=== PATIENT | female | born 1990 | race Caucasian/White ===

== ENCOUNTER 2016-07-01 17:35 | Emergency (ER) | payer MEDICAID | END 2016-07-01 19:55 | disposition home or self-care (01) | DX: R21 Rash and other nonspecific skin eruption (principal); R74.0 Nonspecific elevation of levels of transaminase and lactic acid dehydrogenase [LDH]; R74.8 Abnormal levels of other serum enzymes ==

== ENCOUNTER 2021-05-09 19:21 | Emergency (ER) | payer MEDICAID ==
--- NOTE | 2021-05-09 20:11 | ED Physician Documentation ---
History of Present Illness - Stated complaint Stated Complaint: BILAT HAND SWELL/PAIN/FEVER ON HANDS - Chief complaint Chief Complaint: Ext Problem - History obtained from History obtained from: Patient - Additonal information Additional information: Previously healthy 30-year-old woman. She is quite thin but denies recent weight changes. She presents with bilateral worsening hand redness more burning than painful that started with a lesion on the left index finger that subsequently popped and had some purulent drainage. There is no associated fevers or chills. She denies IV drug use. No other rashes. No history of similar prior issues. Review of Systems Constitutional: reports: Reviewed and negative Eyes: reports: Reviewed and negative Ears: reports: Reviewed and negative Cardiac: reports: Reviewed and negative Respiratory: reports: Reviewed and negative PD PAST MEDICAL HISTORY - Past Medical History Past Medical History: No - Past Surgical History Past Surgical History: No - Present Medications Home Medications: Ambulatory Orders Medication Instructions Recorded Confirmed Sulfamethox/Trimeth 800/160 1 each PO BID #14 tablet 05/09/21 [Bactrim Ds 800/160] - Allergies Allergies/Adverse Reactions: Allergies Allergy/AdvReac Type Severity Reaction Status Date / Time No Known Drug Allergies Allergy Verified 05/09/21 19:31 - Social History Does the pt smoke?: No Smoking Status: Never smoker Does the pt drink ETOH?: No Does the pt have substance abuse?: No - Immunizations Immunizations are current?: Yes PD ED PE NORMAL - Vitals Vital signs reviewed: Yes - General General: Alert and oriented X 3, No acute distress - Extremities Extremities: Other (see mdm, text box too small) - Neuro Neuro: Alert and oriented X 3, Normal speech Results - Vitals Vitals: Vital Signs - 24 hr 05/09/21 05/09/21 19:24 21:38 Temperature 36.4 C L Heart Rate 59 L 61 Respiratory 16 18 Rate Blood Pressure 114/61 108/65 O2 Saturation 100 100 Oxygen O2 Source Room air - Labs Labs: Laboratory Tests 05/09/21 05/09/21 05/09/21 20:19 20:19 20:19 WBC 1.7 L* RBC 3.63 L Hgb 11.7 L Hct 34.9 L MCV 96.1 MCH 32.2 H MCHC 33.5 RDW 13.2 Plt Count 136 MPV 10.1 Neut # (Auto) Not Reportable Lymph # (Auto) Not Reportable [place] # (Auto) Not Reportable Eos # (Auto) Not Reportable Baso # (Auto) Not Reportable Absolute Nucleated RBC Not Reportable Total Counted 50 Band Neuts % (Manual) 14 H Reactive Lymphs % (Man) 10 Abnorm Lymph % (Manual) 8 Nucleated RBC % Not Reportable Neutrophils # (Manual) 0.4 L* Lymphocytes # (Manual) 1.2 L Monocytes # (Manual) 0.1 Eosinophils # (Manual) 0.0 Basophils # (Manual) 0.0 Differential Comment MANUAL DIFFERENTIAL Platelet Estimate DECREASED (<130,000) Platelet Morphology NORMAL APPEARANCE RBC Morph Micro Appear NORMAL APPEARANCE ESR 17 Sodium 134 L Potassium 3.7 Chloride 103 Carbon Dioxide 23 Anion Gap 8.0 BUN 21 H Creatinine 0.5 Estimated GFR (MDRD) 146 Glucose 76 Calcium 9.3 C-Reactive Protein < 1.0 Slides for Path Review Indicated PD MEDICAL DECISION MAKING - ED course ED course: Hand exam: She is well tattooed on the arms, a lot of marijuana related tattoos. There are no track locke. She has a little dried out pustule on the ulnar side of the left index finger proximal phalanx, culture was attempted. She has redness of all the digits of left greater than right hand tracking to the MCPs and maybe a little proximal. Full range of motion of both hands. 30-year-old woman presents with tender nonspecific swollen rash to both hands. It may have started with a pustule on the ulnar side of the left index finger. A culture was attempted there but there was really no drainage per se so I think the results of the culture will be low yield. She is quite skinny but admits to anorexia but not bulimia. She does not feel like her weight is changed significantly lately but then admits to may be having had some weight loss. Because of the unclear diagnosis clinically some basic labs were done which were notable for normal inflammatory markers in light of significant leukopenia and neutropenia. Review of the chart shows that she had labs done about 5 years ago and also had these findings albeit to a lesser extent. She notes that her mother has some sort of low white blood cell count and that she is having that worked up as well, so this may be a congenital issue. She is started on antibiotics pending follow-up and discussed with her that she would probably need to eventually follow-up with hematology oncology for evaluation of neutropenia of unclear etiology. Departure - Departure Disposition: 01 Home, Self Care Clinical Impression: Redness and swelling of hand Neutropenia Qualifiers: Neutropenia type: unspecified Qualified Code(s): D70.9 - Neutropenia, unspecified Condition: Good Record reviewed to determine appropriate education?: Yes Prescriptions: Sulfamethox/Trimeth 800/160 [Bactrim Ds 800/160] 1 each PO BID #14 tablet Comments: As discussed, you were seen today for hand swelling and we found some concerning signs of very low white blood cell counts and neutrophils in your bloodstream. Looks like this may have been present to a much lesser extent 5 years ago but is now more significant. It could be related to your mom's low white blood cell count. Most importantly need to follow-up with her primary care physician, the on-call primary care physician next week for primary care follow-ups is Dr. Adam Rodriguez, I have put his phone number on this form and you should call tomorrow for an appointment. I would anticipate he would consider referring you to hematology for further evaluation and treatment. Return for new or worsening symptoms. I sent your prescription electronically to [facility] in [place]. Discharge Date/Time: 05/09/21 21:38
[2021-05-09 20:26] LABS: BASOPHILS % (AUTO) 1.2 %; EOSINOPHILS % (AUTO) 0.6 %; HCT - HEMATOCRIT 34.9 % (37.0-47.0); HGB - HEMOGLOBIN 11.7 g/dL (12.0-16.0); LYMPHOCYTES % (AUTO) 60.4 %; MEAN CORPUSCULAR HEMOGLOBIN 32.2 pg (27.0-31.0); MEAN CORPUSCULAR HGB CONC 33.5 g/dL (32.0-36.0); MEAN CORPUSCULAR VOLUME 96.1 fL (81.0-99.0); MEAN PLATELET VOLUME 10.1 fL (7.9-10.8); MONOCYTES % (AUTO) 7.7 %; NEUTROPHILS % (AUTO) 30.1 %; PLT - PLATELET COUNT 136 10^3/uL (130-450); RED BLOOD COUNT 3.63 10^6/uL (4.20-5.40); RED CELL DISTRIBUTION WIDTH 13.2 % (12.0-15.0)
[2021-05-09 20:32] LABS: WHITE BLOOD COUNT 1.7 x10^3/uL (4.8-10.8)
[2021-05-09 20:42] LABS: BUN - BLOOD UREA NITROGEN 21 mg/dL (6-20); CALCIUM 9.3 mg/dL (8.5-10.3); CARBON DIOXIDE - CO2 23 mmol/L (21-32); CHLORIDE 103 mmol/L (101-111); CREATININE 0.5 mg/dL (0.4-1.0); GFR - MDRD 146 (>89); GLUCOSE 76 mg/dL (70-100); POTASSIUM 3.7 mmol/L (3.5-5.0); SODIUM 134 mmol/L (135-145)
[2021-05-09 20:53] LABS: CRP - C-REACTIVE PROTEIN < 1.0 mg/dL (0-1.0)
[2021-05-09 21:08] LABS: ABNORMAL LYMPHS % (MANUAL) 8 %; BAND NEUTROPHILS % (MANUAL) 14 %; LYMPHOCYTES # (MANUAL) 1.2 10^3/uL (1.5-3.5); LYMPHOCYTES % (MANUAL) 52 %; MONOCYTES # (MANUAL) 0.1 10^3/uL (0.0-1.0); REACTIVE LYMPHS % (MANUAL) 10 %
[2021-05-09 21:09] LABS: DIFFERENTIAL COMMENT MANUAL DIFFERENTIAL; PLATELET ESTIMATE, MANUAL DECREASED (<130,000) (NORMAL); PLATELET MORPHOLOGY NORMAL APPEARANCE (NORMAL); RBC MORPHOLOGY (MULTIPLE) NORMAL APPEARANCE (NORMAL); SLIDE SENT FOR PATH REVIEW? Indicated
[2021-05-09 21:13] LABS: NEUTROPHILS # (MANUAL) 0.4 10^3/uL (1.5-6.6)
[2021-05-09] MEDS: SULFAMETH/TRIMETH DS 800/160 MG TABLET PO STA (21:37)
[2021-05-09 21:38] VITALS: BP 108/65
== END 2021-05-09 21:38 | disposition home or self-care (01) ==
LOC: ED 19:21
DX: R21 Rash and other nonspecific skin eruption (principal); D70.9 Neutropenia, unspecified; L08.9 Local infection of the skin and subcutaneous tissue, unspecified; R63.0 Anorexia
CPT/HCPCS: 36415; 80048; 85025; 85651; 86140; 87070; 87181; 87205; 99282; 99283; A9270